=== PATIENT | female | born 1960 | race Two or more races ===

== ENCOUNTER 2017-05-27 15:26 | Outpatient (CLI) | payer OTHER | END 2017-05-27 15:31 | disposition home or self-care (01) | LOC: RAD 501 15:26 | DX: S52.222A Displaced transverse fracture of shaft of left ulna, initial encounter for closed fracture (principal) ==

== ENCOUNTER 2017-07-07 08:10 | Outpatient (CLI) | payer OTHER | END 2017-07-07 08:50 | disposition home or self-care (01) | LOC: RAD 501 08:10 | DX: S52.222D Displaced transverse fracture of shaft of left ulna, subsequent encounter for closed fracture with routine healing (principal) ==

== ENCOUNTER 2017-07-12 11:03 | Outpatient (CLI) | payer OTHER | END 2017-07-12 11:05 | disposition home or self-care (01) | LOC: LAB 11:03 | DX: E03.8 Other specified hypothyroidism (principal); E55.9 Vitamin D deficiency, unspecified; M85.9 Disorder of bone density and structure, unspecified; E21.3 Hyperparathyroidism, unspecified; E88.89 Other specified metabolic disorders; M81.8 Other osteoporosis without current pathological fracture; E83.42 Hypomagnesemia; E56.1 Deficiency of vitamin K ==

== ENCOUNTER 2017-07-21 09:42 | Outpatient (CLI) | payer OTHER | END 2017-07-21 10:00 | disposition home or self-care (01) | LOC: RAD 501 09:42 | DX: S52.222D Displaced transverse fracture of shaft of left ulna, subsequent encounter for closed fracture with routine healing (principal) ==

== ENCOUNTER 2017-08-19 11:52 | Outpatient (CLI) | payer OTHER | END 2017-08-19 12:14 | disposition home or self-care (01) | LOC: RAD 501 11:52 | DX: S52.222D Displaced transverse fracture of shaft of left ulna, subsequent encounter for closed fracture with routine healing (principal) ==

== ENCOUNTER 2017-10-20 10:27 | Outpatient (CLI) | payer OTHER | END 2017-10-20 10:40 | disposition home or self-care (01) | LOC: RAD 501 10:27 | DX: S52.222D Displaced transverse fracture of shaft of left ulna, subsequent encounter for closed fracture with routine healing (principal) ==